=== PATIENT | female | born 1950 ===

== ENCOUNTER 2020-12-13 20:23 | Inpatient (IN) | payer OTHER ==
[~2020-12-13] VITALS: Ht 149.9 cm; Wt 64.4 kg
[2020-12-14] MEDS ORDERED: DICYCLOMINE HCL20 MG (09:26)
[2020-12-14] MEDS ORDERED: VASOTEC20 MG (09:36)
[2020-12-14] MEDS ORDERED: SIMVASTATIN20 MG (09:36)
[2020-12-14] MEDS ORDERED: SYNTHROID50 MCG (09:36)
[2020-12-14] MEDS ORDERED: DOCUSATE SODIU100 MG (09:36)
== END 2020-12-20 12:21 | disposition home or self-care (01) | DRG 737 ==
LOC: OB/GYN 20:23
PROVIDERS: ADMIT Obstetrics & Gynecology Gynecologic Oncology; ATTEND Obstetrics & Gynecology Gynecologic Oncology
PROC: 0DTJ0ZZ Resection of Appendix, Open Approach (ICD-10-PCS; 2020-12-16)
PROC: 0FT40ZZ Resection of Gallbladder, Open Approach (ICD-10-PCS; 2020-12-16)
PROC: 0UT20ZZ Resection of Bilateral Ovaries, Open Approach (ICD-10-PCS; 2020-12-16)
PROC: 0UT70ZZ Resection of Bilateral Fallopian Tubes, Open Approach (ICD-10-PCS; 2020-12-16)
PROC: 07BC0ZZ Excision of Pelvis Lymphatic, Open Approach (ICD-10-PCS; 2020-12-16)
PROC: 0DBU0ZZ Excision of Omentum, Open Approach (ICD-10-PCS; 2020-12-16)
PROC: 0UT90ZZ Resection of Uterus, Open Approach (ICD-10-PCS; principal; 2020-12-16 23:15)
DX: C56.1 Malignant neoplasm of right ovary (principal); C77.5 Secondary and unspecified malignant neoplasm of intrapelvic lymph nodes; D12.1 Benign neoplasm of appendix; K81.1 Chronic cholecystitis; D64.9 Anemia, unspecified; I10 Essential (primary) hypertension; E03.9 Hypothyroidism, unspecified; R19.00 Intra-abdominal and pelvic swelling, mass and lump, unspecified site
CPT/HCPCS: 72198; 74185